=== PATIENT | female | born 1990 | race Caucasian/White ===

== ENCOUNTER 2016-05-30 09:30 | Inpatient (IN) | payer BC, MEDICAID ==
--- OUTSIDE RECORDS SUMMARY | 2016-05-30 09:35 | XMS REPORT | Continuity of Care Document ---
:1990 Author Organization [facility] Address [place] [address] Care Team Providers Name Role Phone Unavailable Primary Care Provider Unavailable Source Comments This disclosure is being made pursuant to the [email or web address] program and maynot contain all information available regarding this patient.[facility] Active Allergies and Adverse Reactions Not on File Current Medications Be aware that medications may not be up to date as of this document. Alwaysverify current medications with the patient. Not on file Active Problems Not on file Social History Tobacco Use Types Packs/Day Years Used Date Never Assessed Plan of Care Health Maintenance Due Date Last Done Comments Retired-Pertussis Vaccine Adult 09/16/2007 Retired-Tetanus Vaccine Adult 09/16/2007 Pap Smear 2009 Retired-INFLUENZA VACCINE 10/15/2014 Results from Last 3 Months Not on file
--- OUTSIDE RECORDS SUMMARY | 2016-05-30 09:41 | XMS REPORT | Continuity of Care Document ---
:1990 Author Organization [facility] [place] [address] Care Team Providers Name Role Phone Unavailable Primary Care Provider Unavailable Source Comments This disclosure is being made pursuant to the [employer] program and maynot contain all information available regarding this patient.[facility] Active Allergies and Adverse Reactions Not on [...]
[2016-05-30 09:46] LABS: Hematocrit 35.4 % (37.0-47.0); Hemoglobin 12.4 gm/dL (12.5-16.0); Mean Cell Volume 92.4 fl (78-100); Mean Corpuscular Hemoglobin 32.4 pg (27-31); Neutrophil # 12.1 K/mm3 (1.3-6.0); Neutrophil % 86.9 % (42-75.0); Platelet Count 120 K/mm3 (150-450); Red Blood Count 3.83 M/mm3 (4.2-5.4); Red Cell Distribution Width 14.2 % (11.5-14.0); White Blood Count 13.9 K/mm3 (4.0-10.5)
[2016-05-30] MEDS ORDERED: LIDOCAINE HCL 50 ML VIAL ONE (09:48)
[2016-05-30] MEDS ORDERED: LIDOCAINE HCL 50 ML VIAL PERI PRN (10:18)
[2016-05-30] MEDS ORDERED: RINGERS SOLUTION,LACTATED 1,000 ML IV PRN (10:18)
[2016-05-30] MEDS ORDERED: BISACODYL 10 MG SUPP.RECT RC PRN (10:21)
[2016-05-30] MEDS ORDERED: HYDROCORTISONE 30 APPL TUBE TP PRN (10:21)
[2016-05-30] MEDS ORDERED: BENZOCAINE/MENTHOL 81 SPRAY CAN TP PRN (10:21)
[2016-05-30] MEDS ORDERED: OXYTOCIN/DEXTROSE 5%-WATER 30 UNITS/500 ML BAG IV ONE (10:21)
[2016-05-30] MEDS ORDERED: oxyCODONE HCL/ACETAMINOPHEN 1 TAB TABLET PO PRN (10:21)
[2016-05-30] MEDS ORDERED: GLYCERIN/WITCH HAZEL LEAF 40 APPL BOX TP PRN (10:21)
[2016-05-30] MEDS ORDERED: SENNOSIDES 8.6 MG TABLET PO PRN (10:21)
--- NOTE | 2016-05-30 10:37 | OR ---
Operative Report - Dictated Report Narrative: Spontaneous vaginal delivery of viable male at 10:00 on 05/30/2016 in LASHAY position with Apgars 8 and 9, weighing 2966 g. Cord clamping delayed approximately 1 minute Placenta delivered complete, intact, with three vessel cord Estimated blood loss: less than 50 ml Lacerations: None History for MU Definition: * The number of deliveries resulting in a live the patient experienced prior to current hospitalization * The previous delivery of live twins or any live multiple gestation is considered one live event. *If primagravida or nulliparous is documented select zero for the number of previous live births. Live Events: 3
[2016-05-30] MEDS: IBUPROFEN 800 MG TABLET PO PRN ×2 (10:40→17:38)
[2016-05-30] MEDS: oxyCODONE HCL/ACETAMINOPHEN 1 TAB TABLET PO PRN ×2 (10:40→17:38)
[2016-05-30] MEDS: PRENATAL VIT#96/FERROUS FUM/FA 1 TAB TABLET PO SCH (20:33)
[2016-05-30] MEDS: FERROUS SULFATE 325 MG TABLET PO SCH (20:33)
[2016-05-30] MEDS: DOCUSATE SODIUM 100 MG CAPSULE PO SCH (20:33)
[2016-05-30] MEDS: CALCIUM CARBONATE/VITAMIN D3 1 TAB TABLET PO SCH (20:33)
[2016-05-30] MEDS ORDERED: EAC PO SCH (21:00)
[2016-05-30] MEDS ORDERED: [UNRECOGNIZED DRUG - OTHER] PO SCH (21:00)
[2016-05-30] MEDS ORDERED: VITAMIN D3 PO SCH (21:00)
[2016-05-30] MEDS ORDERED: CALCIUM CARBONATE PO SCH (21:00)
[2016-05-30] MEDS ORDERED: NON-FORMULARY 1 DOSE DOSE (Ferrous Sulfate [Iron] 325 MG) PO SCH (21:00)
[2016-05-31] MEDS: oxyCODONE HCL/ACETAMINOPHEN 1 TAB TABLET PO PRN (09:20)
[2016-05-31] MEDS: IBUPROFEN 800 MG TABLET PO PRN (09:20)
[2016-05-31] MEDS: DOCUSATE SODIUM 100 MG CAPSULE PO SCH ×2 (09:20→20:27)
[2016-05-31] MEDS: FERROUS SULFATE 325 MG TABLET PO SCH (20:27)
[2016-05-31] MEDS: PRENATAL VIT#96/FERROUS FUM/FA 1 TAB TABLET PO SCH (20:27)
[2016-05-31] MEDS: CALCIUM CARBONATE/VITAMIN D3 1 TAB TABLET PO SCH (20:29)
--- NOTE | 2016-06-01 08:37 | PN ---
Progess Note - Interim Narrative: 06/01/16 08:36 LATE PROGRESS NOTE. PT SEEN YESTERDAY AFTERNOON Patient denies complaints. Lochia wnl Abdomen - soft, nontender Uterus - firm, at umbilicus - 1 No calf tenderness Impression: day #1 - s/p spontaneous vaginal delivery. Plan: Continue routine care
--- NOTE | 2016-06-01 08:41 | PN ---
Subjective - Date and Time Seen Date: 06/01/16 Time: 08:39 Objective - Vitals Vitals: Last Vital Signs Temp 36.7 C 06/01/16 07:47 Pulse 93 06/01/16 07:47 Resp 18 06/01/16 07:47 BP 120/58 06/01/16 07:47 Pulse Ox 98 06/01/16 07:47 Patient denies complaints. Lochia wnl Abdomen - soft, nontender Uterus - firm, at umbilicus - 2 No calf tenderness Impression: day #2 - s/p spontaneous vaginal delivery. Baby on IV antibiotics for potentially another few days Plan: Routine discharge instructions. Board for baby.
[2016-06-01] MEDS: DOCUSATE SODIUM 100 MG CAPSULE PO SCH ×2 (14:32→21:21)
[2016-06-01 20:41] VITALS: BP 121/56
[2016-06-01] MEDS: PRENATAL VIT#96/FERROUS FUM/FA 1 TAB TABLET PO SCH (21:21)
[2016-06-01] MEDS: CALCIUM CARBONATE/VITAMIN D3 1 TAB TABLET PO SCH (21:21)
[2016-06-01] MEDS: FERROUS SULFATE 325 MG TABLET PO SCH (21:21)
== END 2016-06-01 23:55 | disposition home or self-care (01) | DRG 774 ==
LOC: OBCLINIC 09:30 → MS 09:31 → OB 09:37 → UNDOADMIN 09:37 → MS 06-01 19:35 → UNDODISIN 06-01 23:55
PROVIDERS: ADMIT Obstetrics & Gynecology; ATTEND Obstetrics & Gynecology
PROC: 10E0XZZ Delivery of Products of Conception, External Approach (ICD-10-PCS; principal; 2016-05-30)
PROC: 4A1HXCZ Monitoring of Products of Conception, Cardiac Rate, External Approach (ICD-10-PCS; 2016-05-30)
DX: O99.02 Anemia complicating childbirth (principal); O98.32 Other infections with a predominantly sexual mode of transmission complicating childbirth; D64.9 Anemia, unspecified; A60.04 Herpesviral vulvovaginitis; Z79.899 Other long term (current) drug therapy; Z87.891 Personal history of nicotine dependence; Z3A.39 39 weeks gestation of pregnancy; Z37.0 Single live birth

== ENCOUNTER 2016-06-23 09:38 | Day surgery (SDC) | payer BC, MEDICAID ==
[~2016-06-23 09:38] MED LIST: RINGERS SOLUTION,LACTATED 1,000 ML IV PRN
--- OUTSIDE RECORDS SUMMARY | 2016-06-23 09:41 | XMS REPORT | Continuity of Care Document ---
:1990 Author Organization [facility] [place] [address] Care Team Providers Name Role Phone Unavailable Primary Care Provider Unavailable Source Comments This disclosure is being made pursuant to the [employer] program and maynot contain all information available regarding this patient.[facility] Active Allergies and Adverse Reactions Not on [...]
[2016-06-23] MEDS ORDERED: RINGERS SOLUTION,LACTATED 1,000 ML IV ONE ×3 (10:13→12:00)
[2016-06-23] MEDS ORDERED: LIDOCAINE HCL/EPINEPHRINE 50 ML VIAL IJ ONE ×2 (11:10)
--- NOTE | 2016-06-23 12:09 | OR ---
Operative Report - Dictated Report Narrative: DATE OF PROCEDURE: 06/23/2016 INDICATION: 25 year old female desires permanent sterilization by removal of both fallopian tubes PREOPERATIVE DIAGNOSIS: Multiparity, desires permanent sterilization POSTOPERATIVE DIAGNOSIS: Multiparity, desires permanent sterilization OPERATION: Laparoscopic bilateral salpingectomy SURGEON: Nellie Gonzales D.O. REFRACTORY GRINDER OPERATOR: None ANESTHESIA: General ESTIMATED BLOOD LOSS: Minimal FLUID REPLACEMENT: 700 mL URINE OUTPUT: Not measured FINDINGS: Normal uterus, tubes, and ovaries. SPECIMEN(S): Fallopian tubes DRAINS: none TECHNIQUE: The patient was taken to the operating room and placed in dorsal lithotomy position after adequate general anesthesia was obtained. The anterior lip of the cervix was grasped with a long Allis clamp and a uterine manipulator was inserted into the cervical canal and attached to the Allis clamps as a means to manipulate the uterus. Bladder was drained prior to patient entering the OR. Gloves were changed and attention was turned to the abdomen where the umbilicus and suprapubic region were injected with a 1% lidocaine epinephrine was solution. A scalpel was used to score the skin and a 5 mm non-bladed trocar was inserted via direct technique under direct visualization. Pneumoperitoneum was created with CO2 gas. A 5 mm non-bladed trocar was inserted suprapubically and in the left lower quadrant in a similar fashion. Through these 3 ports the surgery was carried out with findings as noted above. The right fallopian tube was identified and followed out to the fimbriated end. The fallopian tube was coagulated with the Kleppinger's approximately 2 cm from the cornual region and along the mesosalpinx. The tube was then excised with laparoscopic scissors and removed through the 5 mm port. The exact same was done on the patient's left side. The CO2 gas was removed from the abdominal cavity. Trochars were removed under direct visualization. The skin of all incisions was closed with 4-0 Monocryl and Dermabond. Instruments were removed from the cervix and vagina. Sponge, lap, instrument, and needle count were correct x 2. DISPOSITION: The patient was awakened and transferred to post anesthesia care unit in good condition.
[2016-06-23] MEDS ORDERED: MORPHINE SULFATE 2 MG/ML DISP.SYRIN IV PRN (12:37)
[2016-06-23] MEDS ORDERED: oxyCODONE HCL/ACETAMINOPHEN 1 TAB TABLET PO PRN (12:38)
[2016-06-23] MEDS ORDERED: IBUPROFEN 800 MG TABLET PO PRN (12:39)
[2016-06-23 14:01] VITALS: BP 101/65
== END 2016-06-23 09:39 | disposition home or self-care (01) ==
LOC: AMB 09:38
PROVIDERS: ATTEND Obstetrics & Gynecology
PROC: 0UT74ZZ Resection of Bilateral Fallopian Tubes, Percutaneous Endoscopic Approach (ICD-10-PCS; principal; 2016-06-23 11:35)
DX: Z30.2 Encounter for sterilization (principal); D69.6 Thrombocytopenia, unspecified; D64.9 Anemia, unspecified; Z87.891 Personal history of nicotine dependence; Z68.29 Body mass index [BMI] 29.0-29.9, adult